=== PATIENT | male | born 1935 | race Caucasian/White ===

== ENCOUNTER 2017-01-28 13:15 | Emergency (ER) | payer MEDICARE, OTHER ==
[~2017-01-28] VITALS: Ht 160 cm; Wt 54.4 kg
[2017-01-28] MEDS ORDERED: DONEPEZIL 10MG10 MG PO (13:59)
[2017-01-28] MEDS ORDERED: ARMOUR THYROID30 M1 PO (14:00)
--- OUTSIDE RECORDS SUMMARY | 2017-01-28 14:32 | External Medical Summary Rpt | CCD ---
Author Author , LOUIS MYERS Address Unknown Phone [email or web address] Purpose Continuity of Care Document - through 2016
--- OUTSIDE RECORDS SUMMARY | 2017-01-28 14:32 | External Medical Summary Rpt ---
Demographics Preferred Language Unknown Marital Status Unknown Faith Affiliation Unknown Race Unknown Ethnic Group Unknown Author Author LOUIS Tirado, [facility] [employer] [facility] [employer] Address Unknown Phone Unavailable
--- OUTSIDE RECORDS SUMMARY | 2017-01-28 14:32 | External Medical Summary Rpt ---
Demographics Preferred Language Unknown Marital Status Unknown Buddhism Affiliation Unknown Race Unknown Ethnic Group Unknown Author Author LOUIS Tirado, [facility] [employer] [facility] [employer] Address Unknown Phone Unavailable
--- OUTSIDE RECORDS SUMMARY | 2017-01-28 14:32 | External Medical Summary Rpt | CCD ---
Author Author [facility] [employer] Address Unknown Phone Unavailable Purpose Continuity of Care Document - through 2016
--- OUTSIDE RECORDS SUMMARY | 2017-01-28 14:32 | External Medical Summary Rpt | CCD ---
Demographics Preferred Language Vietnamese Marital Status Unknown Mu-Ism Affiliation Unknown Race Unknown Ethnic Group Unknown Author Author , LOUIS MYERS Address Unknown Phone Immunization No patient found.
--- OUTSIDE RECORDS SUMMARY | 2017-01-28 14:32 | External Medical Summary Rpt | CCD ---
Demographics Preferred Language Khmer Marital Status Unknown Episcopal Affiliation Unknown Race Unknown Ethnic Group Unknown Author Author , LOUIS MYERS Address Unknown Phone Immunization No patient found.
--- OUTSIDE RECORDS SUMMARY | 2017-01-28 14:32 | External Medical Summary Rpt | CCD ---
Author Author , LOUIS MYERS Address Unknown Phone [email or web address] Purpose Continuity of Care Document - through 2016
--- NOTE | 2017-01-28 14:37 | RADIOLOGY REPORT PS360 ---
CT HEAD W/O CONTRAST HISTORY: Head pain following injury, headache, contusion, hematoma FALL ORDERING PHYSICIAN: PATIENT AGE: 81 years COMPARISON: None TECHNIQUE: Axial images obtained without contrast. Brain and bone windows reviewed. FINDINGS: No midline shift, mass effect, intracranial hemorrhage, hydrocephalus, or extra-axial fluid collection is evident. There is generalized atrophy with periventricular ischemic gliotic change. No intra or extra-axial hemorrhage evident. No calvarial fracture. No sinus air-fluid level or mastoid effusion. The calvarium has an unremarkable appearance. No mastoid effusion. The visualized paranasal sinuses are unremarkable. IMPRESSION: No acute intracranial findings
--- NOTE | 2017-01-28 14:40 | RADIOLOGY REPORT PS360 ---
CT SINUS (MAX-FACIAL W/O CONT) CLINICAL INDICATION: Facial pain and swelling following injury FALL ORDERING PHYSICIAN: PATIENT AGE: 81 years COMPARISON: None TECHNIQUE:Axial, sagittal, and coronal images are generated and reviewed without contrast COMPARISON: None FINDINGS:No obvious fracture or dislocation. No sinus air-fluid level. The orbits have an unremarkable appearance. Soft tissue swelling is present over the left zygoma lucency is present over the lateral wall of the left orbit felt to represent a prominent suture as opposed to fracture. The temporomandibular joints have an unremarkable appearance. IMPRESSION: Mild subcutaneous edema over the left zygoma. No acute fracture.
--- NOTE | 2017-01-28 16:18 | RADIOLOGY REPORT PS360 ---
HAND-LT-3 VIEWS HISTORY: Posttraumatic pain FALL ORDERING PHYSICIAN: PATIENT AGE: 81 years COMPARISON: None FINDINGS: No fracture or dislocation. No lytic or blastic change. There is normal mineralization. The joint spaces are well-preserved. No significant degenerative/arthritic changes. No erosive changes evident. IMPRESSION: Negative, no acute finding
--- NOTE | 2017-01-28 17:20 | Emergency Room Report ---
History of Present Illness Time Seen by MD Cummings Presenting Problem in Triage Pt arrived:Ambulance Stretcher Presenting Problem:FALL. PT REPORTS WAS WALKING AT [facility], STATES HE TRIPPED WHEN STEPPING UP ONTO THE CURB. 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 N Clinical Suspician of Infection? N Mental Status: 1 - Regular (Normal Baseline) Sepsis Risk:Low Sepsis Risk Have you (or family members/close friends) recently traveled outside the [place]? N If Yes, where/when: Have you had exposure to infectious disease within the past month? N TB? Other? Specify: Source patient, RN notes reviewed, family, EMS, old records Exam Limitations no limitations Comment pt with trip type fall this pm with no chest pain/syncope or chest pain with lt hand injury/head and facial injury- no hip or neck pain Cardiac Chest Pain Chest pain indicative of cardiac No Timing/Duration this afternoon Severity moderate ALLERGIES Coded Allergies: No Known Allergies (01/28/17) Home Medications Reported Medications DONEPEZIL HCL (Donepezil 10MG Tablet) 10 MG PO QHS Thyroid,Pork ([place] Thyroid) 30 MG PO TID History Medical History General Hypertension? No Hyperlipidemia? No Diabetes? No More? Yes Additional hx: CONSTIPATION Immunization Hx DT/Tetanus Unknown Surgical Hx Previous Surgery?Y Appendectomy Social History Smoking Hx Smoker: Never Smoker Tobacco: No Alcohol Alcohol: No Drugs none Review of Systems All Other Systems Reviewed and Negative Constitutional denies fever Eyes denies drainage ENT denies: ear discharge, epistaxis, throat pain. Respiratory denies cough, denies shortness of breath, denies wheezing Cardiovascular denies chest pain, denies palpitations, denies syncope Gastrointestinal denies abdominal pain, denies diarrhea, denies vomiting Genitourinary denies: dysuria, frequency, hesitancy, hematuria. Musculoskeletal see HPI, denies back pain, joint pain, denies joint swelling, denies neck pain Skin see HPI, denies rash, other Psychiatric/Neurological denies paresthesia, denies seizure, denies weakness Physical Exam Vital Signs Vital Signs Date Time Temp Pulse Resp B/P Pulse O2 O2 Flow FiO2 Ox Delivery Rate 01/28 1728 76 18 156/94 94 01/28 1514 75 18 155/85 95 01/28 1315 98.4 78 18 127/65 99 - WBC >12,000 or <4,000 or 10% bands? 2 or more SIRS Criteria Met? B/P:156/94 MAP:85 Creatinine >2.0? UA output<0.5ml/kg/hr for 2 hrs? Platelet count >100,000? Lactate >2.0mmol/1? INR >1.2 or PTT > than 60 sec? Evidence of Organ Dysfunction? Provider documented clinical suspician of infection? N Sepsis Criteria Count: 0 Sepsis Risk: Low Sepsis Risk General Appearance no apparent distress Eye Exam - bilateral eye PERRL, bilateral eye EOMI Ear, Nose, Throat normal ENT inspection Neck non-tender Respiratory Status No: respiratory distress. Lung Sounds bilateral: lungs clear. 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 No Results/Orders Orders Procedure Date/time Status DIET-NOTHING BY MOUTH 01/[address] HEAD REQ 01/[address] SCAN REQ 01/28 1319 Complete XRAY/CT/US XRAY/CT/US 1 XRAY hand XR interpretation by reviewed by me Xray Results no fracture seen XRAY/CT/US 2 CT head, sinus CT interpretation by discussed w/radiologist Time results known: 1732 CT Results no fracture seen Procedures Laceration/Wound Repair Laceration/Wound Repair Risks/benefits discussed with pt/guardian? Yes Tetanus status up to date Wound Location hand Wound Length (cm) 0.5 Wound's Depth, Shape superficial Wound Explored no FB identified Risk of retained FB explained to pt/guardian? Yes Irrigated w/ Saline (ccs) 0 Wound Prep Hibiclens, Saline Volume Anesthetic (ccs) 0 Wound Debrided none Wound Repaired With Dermabond Layer Closure No Total Number Sutures 0 Sterile Dressing Applied Yes Splint Applied No Sling Applied No Departure Departure Time of Disposition 1734 Disposition DC Home or Self Care(routine) Clinical Impression Primary Impression: Head contusion Qualifiers: Encounter type: initial encounter Contusion of head detail: unspecified part of head Qualified Code: S00.93XA - Contusion of unspecified part of head, initial encounter Secondary Impressions: Abrasion Facial contusion Qualifiers: Encounter type: initial encounter Qualified Code: S00.83XA - Contusion of other part of head, initial encounter Hand contusion Qualifiers: Encounter type: initial encounter Laterality: left Qualified Code: S60.222A - Contusion of left hand, initial encounter Condition STABLE Referrals Vic Hall MD (Family) Patient Instructions DI for Laceration Repair With Dermabond Additional Instructions see pcp for follow up and recheck if needed Discharge Counseling Counseled pt/family regarding diagnosis, test results, medications/RX, follow up needs ED Critical Care Critical Care No at 1738
[2017-01-28 17:38] VITALS: BP 156/94
== END 2017-01-28 17:42 | disposition home or self-care (01) ==
LOC: ER 13:15
PROC: 0HQGXZZ Repair Left Hand Skin, External Approach (ICD-10-PCS; principal; 2017-01-28)
DX: S00.93XA Contusion of unspecified part of head, initial encounter (principal); S00.83XA Contusion of other part of head, initial encounter; S60.222A Contusion of left hand, initial encounter; W01.10XA Fall on same level from slipping, tripping and stumbling with subsequent striking against unspecified object, initial encounter; Y92.89 Other specified places as the place of occurrence of the external cause